=== PATIENT | male | born 1955 | race Caucasian/White ===

== ENCOUNTER 2020-12-27 21:50 | Inpatient (IN) | payer OTHER ==
[~2020-12-27] VITALS: Ht 172.7 cm; Wt 100.0 kg
[~2020-12-27 21:50] MED LIST: AMOXICILLIN500 MG PO; CYCLOBENZAPRINE10 MG PO; FENOFIBRATE160 MG PO; METOPROLOL TAR100 MG PO; TRULICITY0.75 MG/0. SQ; VITAMIN B-121000 MCG PO; VITAMIN D350 MCG PO
[2020-12-27] MEDS ORDERED: CYCLOBENZAPRINE10 MG PO (23:06)
[2020-12-27] MEDS ORDERED: METOPROLOL TAR100 MG PO (23:06)
[2020-12-27] MEDS ORDERED: FENOFIBRATE160 MG PO (23:06)
[2020-12-27] MEDS ORDERED: BUPROPION XL150 MG PO (23:06)
[2020-12-27] MEDS ORDERED: TRULICITY0.75 MG/0. SQ (23:07)
[2020-12-28 10:45] LABS: BUN/CREATININE RATIO 16 (0-10)
[2020-12-28] MEDS ORDERED: GABAPENTIN800 MG PO (11:36)
[2020-12-28] MEDS ORDERED: FAMOTIDINE20 MG PO (11:37)
[2020-12-28] MEDS ORDERED: LANTUS SOL100 UNIT/1 SQ (11:37)
[2020-12-28] MEDS ORDERED: ATORVASTATIN CA40 MG PO (11:37)
[2020-12-28] MEDS ORDERED: MELOXICAM15 MG PO (11:37)
[2020-12-28] MEDS ORDERED: METFORMIN HCL1000 MG PO (11:38)
[2020-12-28] MEDS ORDERED: ISOSORBIDE MON120 MG PO (11:38)
[2020-12-28] MEDS ORDERED: LISINOPRIL20 MG PO (11:38)
[2020-12-28] MEDS ORDERED: ASPIRIN81 MG PO (11:39)
[2020-12-28] MEDS ORDERED: ELIQUIS5 MG PO (11:39)
[2020-12-28] MEDS ORDERED: BUPROPION XL150 MG PO (15:19)
[2020-12-29 04:33] LABS: HEMOGLOBIN 14.8 gm/dl (14.0-17.5); RED BLOOD COUNT 4.52 M/UL (4.20-5.50); WHITE BLOOD COUNT 10.4 K/UL (4.5-11.0)
[2020-12-29 05:03] LABS: BUN/CREATININE RATIO 15 (0-10)
[2020-12-29] MEDS ORDERED: NICOTINE PATCH1 EAC2 TOP (17:08)
[2020-12-29] MEDS ORDERED: NITROGLYCERIN0.4 MG SL (17:08)
[2020-12-29] MEDS ORDERED: BRILINTA 90 MG90 MG PO (17:08)
[2020-12-29] MEDS ORDERED: ATORVASTATIN CA20 MG PO (17:08)
[2020-12-29] MEDS ORDERED: LOPRESSOR 25 MG25 MG PO (17:08)
[2020-12-30 08:28] LABS: HEMOGLOBIN 15.5 gm/dl (14.0-17.5); RED BLOOD COUNT 4.81 M/UL (4.20-5.50); WHITE BLOOD COUNT 11.6 K/UL (4.5-11.0)
[2020-12-30 09:12] LABS: BUN/CREATININE RATIO 12 (0-10)
[2020-12-31 10:37] LABS: HEMOGLOBIN 13.7 gm/dl (14.0-17.5); WHITE BLOOD COUNT 11.1 K/UL (4.5-11.0)
[2020-12-31 10:45] LABS: RED BLOOD COUNT 4.22 M/UL (4.20-5.50)
[2020-12-31 10:55] LABS: BUN/CREATININE RATIO 15 (0-10)
[2021-01-01 03:31] LABS: HEMOGLOBIN 12.7 gm/dl (14.0-17.5); RED BLOOD COUNT 4.07 M/UL (4.20-5.50); WHITE BLOOD COUNT 10.8 K/UL (4.5-11.0)
[2021-01-01 03:51] LABS: BUN/CREATININE RATIO 14 (0-10)
[2021-01-01] MEDS ORDERED: LOPRESSOR 25 MG25 MG PO (10:57)
== END 2021-01-01 12:17 | disposition home or self-care (01) | DRG 247 ==
LOC: PROG CARE 21:50
PROVIDERS: Internal Medicine; Internal Medicine Interventional Cardiology; ADMIT Internal Medicine
PROC: 027034Z Dilation of Coronary Artery, One Artery with Drug-eluting Intraluminal Device, Percutaneous Approach (ICD-10-PCS; principal; 2020-12-28)
PROC: B24BZZZ Ultrasonography of Heart with Aorta (ICD-10-PCS; 2020-12-28)
PROC: 4A023N7 Measurement of Cardiac Sampling and Pressure, Left Heart, Percutaneous Approach (ICD-10-PCS; 2020-12-28)
PROC: B2111ZZ Fluoroscopy of Multiple Coronary Arteries using Low Osmolar Contrast (ICD-10-PCS; 2020-12-28)
DX: I21.4 Non-ST elevation (NSTEMI) myocardial infarction (principal); E44.0 Moderate protein-calorie malnutrition; E87.2 Acidosis; Z20.822 Contact with and (suspected) exposure to COVID-19; K59.00 Constipation, unspecified; I25.10 Atherosclerotic heart disease of native coronary artery without angina pectoris; F17.210 Nicotine dependence, cigarettes, uncomplicated; E11.65 Type 2 diabetes mellitus with hyperglycemia; I11.0 Hypertensive heart disease with heart failure; E78.5 Hyperlipidemia, unspecified; Z86.718 Personal history of other venous thrombosis and embolism; Z79.01 Long term (current) use of anticoagulants; Z82.49 Family history of ischemic heart disease and other diseases of the circulatory system; Z79.4 Long term (current) use of insulin; Z95.5 Presence of coronary angioplasty implant and graft; Z68.33 Body mass index [BMI] 33.0-33.9, adult
CPT/HCPCS: ECHO; 36415; 80053; 80061; 80307; 81001; 82550; 82553; 82962; 83605; 83735; 84439; 84443; 84484; 84550; 85025; 85347; 85730; 86140; 87040; 93005; 93306; 93571; 97161; 99152; 99153; C1725; C1769; C1874; C1887; C9600; J0153; J0461; J1644; J2250; J3010; J3246; J7040; Q9967